=== PATIENT | male | born 1985 | race African-American/Black ===

== ENCOUNTER 2018-01-03 03:26 | Emergency (ER) | payer SELFPAY ==
[~2018-01-03] VITALS: Ht 177.8 cm; Wt 72.6 kg
[2018-01-03 04:00] VITALS: BP 122/76
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
[2018-01-03 04:30] VITALS: BP 122/76
== END 2018-01-03 04:30 | disposition home or self-care (01) ==
LOC: EMR 04:01
DX: S16.1XXA Strain of muscle, fascia and tendon at neck level, initial encounter (principal); M54.2 Cervicalgia; Y04.2XXA Assault by strike against or bumped into by another person, initial encounter; Y93.9 Activity, unspecified; Y92.9 Unspecified place or not applicable; Y99.9 Unspecified external cause status
CPT/HCPCS: 99282

== ENCOUNTER 2020-01-29 19:02 | Emergency (ER) | payer SELFPAY ==
[~2020-01-29] VITALS: Ht 177.8 cm; Wt 74.8 kg
[2020-01-29 19:20] VITALS: BP 132/87
[2020-01-29] MEDS ORDERED: Tylenol #3 tab (300mg/30mg) ORAL ONE (19:45)
[2020-01-29] MEDS ORDERED: Ketorolac 30mg Inj IM ONE (19:45)
--- NOTE | 2020-01-29 19:51 | Emergency Room Report ---
History of Present Illness General Chief Complaint: Medication Refill Present Illness HPI 34 YO male presents to the ED c/o 12/04 pain localized to the Right forearm status post laceration that he sustained this morning. Patient reports that the wound was closed to alternate ER earlier today. Patient states he was discharged without any medications such as pain medication or antibiotics. Patient reports that when he woke up from taking a nap he had excruciating pain as the anesthesia was also worn off at that time. Patient denies additional trauma or fall. He denies excessive bleeding. Patient states he received his tetanus vaccine 4 years ago. Patient states that he took regular Tylenol and Motrin [id number] with no relief of his symptoms. He denies paresthesias, weakness or loss of gross motor movements of the affected extremity. Patient denies skin color changes to the portions of his arm that are distal to the lace ration. Patient states he was not splinted or even placed in a sling. Pt. is right hand dominant. 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 Patient History Past Medical History: see triage record Past Surgical History: none Pertinent Family History: none Immunizations: UTD Reviewed Nursing Documentation: PMH: Agreed; PSxH: Agreed Review of Systems All Other Systems: negative except mentioned in HPI Physical Exam Vital Signs Date Time Temp Pulse Resp B/P (MAP) Pulse Ox O2 Delivery O2 Flow Rate FiO2 01/29/20 19:08 98.8 74 18 132/87 (102) 95 Room Air Sp02 EP Interpretation: reviewed, normal General Appearance: no apparent distress, alert, GCS 15, non-toxic Head: normocephalic, atraumatic Eyes: bilateral eye normal inspection, bilateral eye PERRL ENT: hearing grossly normal, normal voice Neck: full range of motion Respiratory: lungs clear, normal breath sounds, speaking full sentences Cardiovascular #1: regular rate, rhythm, normal capillary refill Cardiovascular #2: 2+ radial (R), 2+ radial (L) Musculoskeletal: back normal, normal range of motion, gait/station normal, non- tender Neurologic: alert, motor strength/tone normal, oriented x3, sensory intact, responsive, speech normal Psychiatric: judgement/insight normal Skin: wd healing/no infection noted - Previously sutured posterolateral right forearm lacerations approx 3 cm and 2.5 cm in length. No bleeding or D/c, no surrounding erythema or warmth. Medical Decision Making PA Attestation Dr. Gomes is my supervising Physician whom patient management has been discus sed with. Diagnostic Impression: Primary Impression: Encounter for re-check of laceration wound ER Course 34 YO male presents to the ED c/o 8/10 pain localized to the Right forearm status post laceration that he sustained this morning. Patient reports that the wound was closed to alternate ER earlier today. Patient states he was discharged without any medications such as pain medication or antibiotics. Patient reports that when he woke up from taking a nap he had excruciating pain as the anesthesia was also worn off at that time. Patient denies additional trauma or fall. He denies excessive bleeding. Patient states he received his tetanus vaccine 4 years ago. Patient states that he took regular Tylenol and Motrin [id number] with no relief of his symptoms. He denies paresthesias, weakness or loss of gross motor movements of the affected extremity. Patient denies skin color changes to the portions of his arm that are distal to the laceration. Patient states he was not splinted or even placed in a sling. Pt. is right hand dominant. Ddx considered but are not limited to laceration, tendon injury, cellulitis, amputation Vital signs: are WNL, pt. is afebrile H&PE are most consistent with: Previously sutured posterolateral right forearm lacerations approx 3 cm and 2.5 cm in length. No bleeding or D/c, no surrounding erythema or warmth. ORDERS: none required at this time, the diagnosis is clinical ED INTERVENTIONS: - Dressing was removed, lacerations were examined. New sterile dressing that has non-stick properties was placed. - Right arm Sling applied by evs tech. Pt. remains neurovascularly intact. DISCHARGE: At this time pt. is stable for d/c to home. Will provide printed patient care instructions, and any necessary prescriptions. Care plan and follow up instructions have been discussed with the patient prior to discharge. Last Vital Signs Date Time Temp Pulse Resp B/P (MAP) Pulse Ox O2 Delivery O2 Flow Rate FiO2 01/29/20 19:20 98.8 76 18 132/87 95 Room Air Status: improved Disposition: HOME, SELF-CARE Condition: Stable Referrals: [facility] Patient Instructions: Laceration Care, Adult Additional Instructions: Take medications as directed. Do not drink alcohol, drive, or operate heavy machinery while taking Tylenol # 3 (opiate pain medication ) as this may cause drowsiness and will impair your judgement. Follow up with a Primary Care Provider in 3-5 days, even if your symptoms have resolved. --Please review list of primary care clinics, if you do not already have a primary care provider Return sooner to ED if new symptoms occur, or current symptoms become worse. - Please note that this Emergency Department Report was dictated using [employer] conditioner technology software, occasionally this can lead to erroneous entry secondary to interpretation by the dictation equipment. Nicolle Mares Jan 29, 2020 19:51
[2020-01-29] MEDS ORDERED: BACITRACIN15 GM TOPIC (19:52)
[2020-01-29] MEDS ORDERED: ACETAMINOPHEN-1 EAC1 ORAL (19:52)
[2020-01-29] MEDS ORDERED: CEPHALEXIN500 MG ORAL (19:52)
[2020-01-29 20:10] VITALS: BP 132/87
== END 2020-01-29 20:05 | disposition home or self-care (01) ==
LOC: EMR 19:40
DX: S51.811A Laceration without foreign body of right forearm, initial encounter (principal); X58.XXXA Exposure to other specified factors, initial encounter; Y92.9 Unspecified place or not applicable
CPT/HCPCS: 96372; 99283; J1885